=== PATIENT | male | born 1965 | race Caucasian/White ===

== ENCOUNTER 2016-06-22 22:37 | Emergency (ER) | payer OTHER ==
[~2016-06-22] VITALS: Ht 193 cm; Wt 97.1 kg
[2016-06-23] MEDS ORDERED: PEN-VEE K,VEET500 MG PO
[2016-06-23] MEDS ORDERED: NORCO 5/3251 TABLET PO
[2016-06-23 00:18] VITALS: BP 145/95
== END 2016-06-23 00:18 | disposition home or self-care (01) ==
LOC: EME 22:37
PROC: 3E0X3BZ Introduction of Anesthetic Agent into Cranial Nerves, Percutaneous Approach (ICD-10-PCS; principal; 2016-06-22)
DX: K08.89 Other specified disorders of teeth and supporting structures (principal); S02.5XXA Fracture of tooth (traumatic), initial encounter for closed fracture; F17.200 Nicotine dependence, unspecified, uncomplicated
CPT/HCPCS: 99281; 99283; S0020